=== PATIENT | female | born 1960 | race Caucasian/White ===

== ENCOUNTER 2020-07-19 14:11 | Inpatient (IN) | payer OTHER ==
[~2020-07-19 14:11] MED LIST: APREMILAST PO; CLIN150C10 PO; CLONAZEPAM PO; DICL2100G TP; DULOXETINE PO; EZET10TA13 PO; LACT1CAP78 PO; LORA-705 PO; MAGN296S76 PO; META800T72 PO; METR59LO TP; MOME17N NS; MULT-1203 PO; NAPR220C15 PO; SIMVASTATIN PO; TETR15DR84 OU; TRAM50TA4 PO
[2020-07-19] MEDS ORDERED: ONDANSETRON HCL 4 MG/2 ML VIAL ONE ×2 (14:27→18:10)
[2020-07-19] MEDS ORDERED: MECLIZINE HCL 25 MG TABLET ONE (14:27)
[2020-07-19 15:08] LABS: BASOPHILS % (AUTO) 0.5 % (0.0-5.0); EOSINOPHILS % (AUTO) 3.8 % (0.0-8.0); HEMATOCRIT 46.7 % (36-48); LYMPHOCYTES % (AUTO) 14.5 % (21.0-51.0); MEAN CORPUSCULAR HEMOGLOBIN 32.5 pg (27.0-33.0); MEAN CORPUSCULAR HGB CONC 33.4 g/dL (32.0-36.0); MEAN CORPUSCULAR VOLUME 97.3 fL (79-99); MONOCYTES % (AUTO) 4.4 % (3.0-13.0); NEUTROPHILS % (AUTO) 76.3 % (40.0-77.0); PLATELET COUNT (AUTO) 172 K/uL (130-400); RED CELL DISTRIBUTION WIDTH 13.1 % (11.0-15.5); WHITE BLOOD COUNT (AUTO) 9.7 K/uL (4.8-10.8)
[2020-07-19 15:19] LABS: CREATININE 0.7 mg/dL (0.5-1.5); POTASSIUM 4.8 mmol/L (3.5-5.1)
[2020-07-19 15:23] LABS: ALBUMIN 3.3 g/dL (3.5-5.0); BILIRUBIN,TOTAL 0.8 mg/dL (0.2-1.0); TOTAL PROTEIN, SERUM 7.4 g/dL (6.0-8.3)
[2020-07-19] MEDS ORDERED: LORAZEPAM 2 MG/ML 1 ML VIAL ONE (17:54)
[2020-07-19] MEDS ORDERED: IOHEXOL 350 MG/ML 100ML INFUS..BTL IV ONE (19:02)
[2020-07-20] VITALS (8 sets, daily range): BP systolic 117–143; BP diastolic 54–86
[2020-07-20] MEDS ORDERED: TRAMADOL HCL 50 MG TABLET PO PRN (01:00)
[2020-07-20] MEDS ORDERED: ACETAMINOPHEN 325 MG TAB PO PRN (01:00)
[2020-07-20] MEDS ORDERED: LACTULOSE 20 GM/30 ML UDCUP PO PRN (01:00)
[2020-07-20] MEDS ORDERED: MECLIZINE HCL 25 MG TABLET PO PRN (01:00)
[2020-07-20] MEDS ORDERED: ONDANSETRON HCL 4 MG/2 ML VIAL IV PRN ×2 (01:00→19:00)
[2020-07-20] MEDS ORDERED: PSEUDOEPHEDRINE HCL 30 MG TAB PO PRN (01:00)
[2020-07-20] MEDS ORDERED: MECLIZINE HCL 25 MG TABLET ONE ×2 (01:02→09:40)
[2020-07-20] MEDS ORDERED: ONDANSETRON HCL 4 MG/2 ML VIAL ONE ×2 (01:02→15:47)
[2020-07-20 01:11] LABS: AMPHET/METH SCREEN,URINE NEGATIVE (NEGATIVE); BARBITURATE SCREEN, URINE NEGATIVE (NEGATIVE); BENZODIAZEPINES SCREEN,URINE NEGATIVE (NEGATIVE); CANNABINOID SCREEN,URINE NEGATIVE (NEGATIVE); COCAINE SCREEN,URINE NEGATIVE (NEGATIVE); OPIATE SCREEN,URINE NEGATIVE (NEGATIVE); PHENCYCLIDINE SCREEN,URINE NEGATIVE (NEGATIVE)
[2020-07-20 08:11] LABS: HEMATOCRIT 45.5 % (36-48); MEAN CORPUSCULAR HEMOGLOBIN 32.4 pg (27.0-33.0); MEAN CORPUSCULAR HGB CONC 33.8 g/dL (32.0-36.0); MEAN CORPUSCULAR VOLUME 95.8 fL (79-99); RED BLOOD CELL COUNT(AUTO) 4.75 MIL/uL (4.00-5.50); RED CELL DISTRIBUTION WIDTH 13.1 % (11.0-15.5); WHITE BLOOD COUNT (AUTO) 14.9 K/uL (4.8-10.8)
[2020-07-20 08:23] LABS: CREATININE 0.6 mg/dL (0.5-1.5); POTASSIUM 3.6 mmol/L (3.5-5.1)
[2020-07-20] MEDS: ARTIFICAL TEARS SOL 15 ML OU SCH (09:00)
[2020-07-20] MEDS ORDERED: SKELAXIN 800 MG PO PRN (09:00)
[2020-07-20] MEDS ORDERED: NAPROXEN 250 MG TAB PO PRN (09:00)
[2020-07-20] MEDS: METRONIDAZOLE TP SCH (09:00)
[2020-07-20] MEDS: FLUTICASONE PROPIONATE 50MCG/SPRAY 16 GM BOTTLE EN SCH ×2 (09:00→20:23)
[2020-07-20] MEDS ORDERED: ACETAMINOPHEN 325 MG TAB ONE (09:40)
[2020-07-20] MEDS ORDERED: FLU VACC QS2020-21(6MOS UP)/PF 60 MCG/0.5 ML ML IM ONE (11:00)
[2020-07-20] MEDS ORDERED: HYDROMORPHONE HCL 2 MG/ML VIAL IVP PRN (15:45)
[2020-07-20] MEDS: ACETAMINOPHEN 325 MG TAB PO PRN (15:49)
[2020-07-20] MEDS ORDERED: LISI40TA4 PO (16:39)
[2020-07-20] MEDS ORDERED: METH25VI11 SQ (16:39)
[2020-07-20] MEDS ORDERED: AMOX1TAB16 PO (16:39)
[2020-07-20] MEDS ORDERED: ROSU10TA28 PO (16:39)
[2020-07-20] MEDS ORDERED: FOLI0.4T2 PO (16:39)
[2020-07-20] MEDS ORDERED: SULF500T49 PO (16:39)
[2020-07-20] MEDS ORDERED: METO-408 PO (16:39)
[2020-07-20] MEDS ORDERED: ISOS10TA8 PO (16:39)
--- NOTE | 2020-07-20 17:27 | NUR ---
LEONARDO NOTE/IA UNABLE TO MEET WITH PATIENT IN ROOM. NEXT OF KIN CALLED, KARRIE DURAND. PER SPOUSE, PATIENT LIVES WITH HIM, IS INDEPENDENT WITH ADLS, NO USE OF DME OR PROVIDERS, SELF EMPLOYED, AND FEEL SAFE FOR PATIENT TO RETURN HOME ONCE MEDICALLY CLEARED. Addendum: 07/20/20 at 1729 by JETHRO IVERSON RN CM Amended: Links added.
[2020-07-20] MEDS ORDERED: DULO60CA64 PO (18:36)
[2020-07-20] MEDS ORDERED: L.AC1CAP6 PO (18:36)
[2020-07-20] MEDS ORDERED: [UNRECOGNIZED DRUG - OTHER] (18:36)
[2020-07-20] MEDS ORDERED: [UNRECOGNIZED DRUG - OTHER] (18:45)
[2020-07-20] MEDS ORDERED: INFL100I INJ (18:47)
[2020-07-20] MEDS: HYDROMORPHONE HCL 2 MG/ML VIAL IVP PRN (19:39)
[2020-07-20] MEDS ORDERED: EZETIMIBE 10 MG TAB PO SCH (21:00)
[2020-07-20] MEDS ORDERED: ATORVASTATIN CALCIUM 20 MG TABLET PO SCH (21:00)
[2020-07-21] VITALS (18 sets, daily range): BP systolic 105–157; BP diastolic 45–90
[2020-07-21] MEDS: HYDROMORPHONE HCL 2 MG/ML VIAL IVP PRN ×2 (01:58→07:21)
[2020-07-21 03:52] LABS: BASOPHILS % (AUTO) 0.3 % (0.0-5.0); EOSINOPHILS % (AUTO) 0.1 % (0.0-8.0); HEMATOCRIT 47.9 % (36-48); LYMPHOCYTES % (AUTO) 8.8 % (21.0-51.0); MEAN CORPUSCULAR HEMOGLOBIN 32.5 pg (27.0-33.0); MEAN CORPUSCULAR VOLUME 98.6 fL (79-99); MONOCYTES % (AUTO) 5.1 % (3.0-13.0); NEUTROPHILS % (AUTO) 85.1 % (40.0-77.0); PLATELET COUNT (AUTO) 219 K/uL (130-400); RED BLOOD CELL COUNT(AUTO) 4.86 MIL/uL (4.00-5.50); RED CELL DISTRIBUTION WIDTH 13.4 % (11.0-15.5); WHITE BLOOD COUNT (AUTO) 14.2 K/uL (4.8-10.8)
[2020-07-21 03:57] LABS: HEMOGLOBIN A1C 5.9 % (4.0-6.0)
[2020-07-21 04:10] LABS: CREATININE 0.8 mg/dL (0.5-1.5); POTASSIUM 3.8 mmol/L (3.5-5.1)
[2020-07-21] MEDS: ACETAMINOPHEN 325 MG TAB PO PRN (04:27)
[2020-07-21] MEDS: METRONIDAZOLE TP SCH ×2 (09:00→09:41)
[2020-07-21] MEDS: ARTIFICAL TEARS SOL 15 ML OU SCH (09:39)
[2020-07-21] MEDS: FLUTICASONE PROPIONATE 50MCG/SPRAY 16 GM BOTTLE EN SCH (09:40)
--- NOTE | 2020-07-21 11:30 | NUR ---
CHRISTOPHER, DR MATIAS'S ER RN, NOTIFIED OF CT READING FROM THIS AM. STATES DR MATIAS WILL BE NOTIFIED AND WILL PROBABLY SEE THE PATIENT TOMORROW
--- NOTE | 2020-07-21 17:30 | NUR ---
TRANSFER REPORT GIVEN TO MARIA M, NURSE AT [facility], AT THIS TIME. PATIENT TO BE TRANSFERRED FOR HIGHER LEVEL OF CARE. DR DEWEY, DR LEAL, AND DR JOSE LUIS KEY. PATIENT'S , KARRIE, WAS UPDATED AND NOTIFIED ABOUT TRANSFER BY DR LEAL VIA TELEPHONE. PATIENT IS ALSO AAO AND AGREES WITH PLAN. PATIENT TO LEAVE VIA EMS SOON POSSIBLE
--- NOTE | 2020-07-21 18:30 | NUR ---
PATIENT TRANSFERRED VIA EMS AT THIS TIME TO [facility]
--- NOTE | 2020-07-21 19:32 | NUR ---
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 [address] [facility] and email sent to [facility] 1600 call back with a denial no beds. 1625 Dr moran made aware no beds. 1633 intake nurse call back with acceptance room icu 13 and primary nurse to call report to [facility] 1036 consent sign and EMS set up . Pasquale carrizales
== END 2020-07-21 18:30 | disposition short-term general hospital (02) | DRG 66 ==
LOC: EDH 14:11 → EDHIP 07-20 00:49 → OBSVTOIN 07-20 00:49 → DAHIP 07-20 16:10
PROVIDERS: ADMIT Internal Medicine; ATTEND Internal Medicine
DX: I63.9 Cerebral infarction, unspecified (principal); J32.9 Chronic sinusitis, unspecified; M06.9 Rheumatoid arthritis, unspecified; G43.909 Migraine, unspecified, not intractable, without status migrainosus; E78.5 Hyperlipidemia, unspecified; I10 Essential (primary) hypertension; F41.9 Anxiety disorder, unspecified; F32.9 Major depressive disorder, single episode, unspecified; H55.00 Unspecified nystagmus; G89.4 Chronic pain syndrome; D72.828 Other elevated white blood cell count; J32.0 Chronic maxillary sinusitis; Z20.828 Contact with and (suspected) exposure to other viral communicable diseases; E66.01 Morbid (severe) obesity due to excess calories; Z79.899 Other long term (current) drug therapy; Z23 Encounter for immunization; Z82.3 Family history of stroke
CPT/HCPCS: 36415; 70450; 70496; 70498; 70551; 80048; 80053; 80061; 80305; 82550; 83036; 84484; 85025; 85027; 87426; 93005; G0378; J1170; J2060; J2405; Q2035; Q9967

== ENCOUNTER → 2025-10-02 | Outpatient (CLI) | payer OTHER ==
[~2025-10-02] MED LIST changes: +AMOX1TAB16 PO; +CLIN-116 PO; -CLIN150C10 PO; +DULO60CA64 PO; -EZET10TA13 PO; +EZET10TA81 PO; +FOLI0.4T6 PO; +INFL100I INJ; +ISOS10TA96 PO; +L.AC1CAP6 PO; +LISI40TA15 PO; +LORA-699 PO; -LORA-705 PO; +MAGN296S73 PO; -MAGN296S76 PO; +METH25VI11 SQ; +METO-408 PO; -MOME17N NS; +MOME17SP4 NS; +ROSU10TA98 PO; +SULF500T49 PO; +[UNRECOGNIZED DRUG - OTHER]; +[UNRECOGNIZED DRUG - OTHER]
--- NOTE | 2025-10-06 13:43 | HMCIMG ---
US DUPLEX BILATERAL LOWER EXTREMITY ARTERIES Clinical History: I73.9 (DICOM Hx) / Insurance= (Pt comments) (DICOM Hx) Technique: Real-time ultrasound scan of the arteries of the bilateral lower extremity with 2-D rojas scale, color Doppler flow, and spectral waveform analysis. Comparison: None provided. Findings: Common Femoral Artery: No occlusion or significant stenosis. Normal flow velocities recorded; 127 cm/s on the right and 126 cm/s on the left. Superficial Femoral Artery: No occlusion or significant stenosis. Normal flow velocities noted at proximal, mid, and distal segments bilaterally. Right side velocities measure 103 cm/s, 94 cm/s, and 106 cm/s respectively. Left side velocities measure 113 cm/s, 91 cm/s, and 90 cm/s respectively. Popliteal Artery: No occlusion or significant stenosis. Normal flow velocities with right popliteal peak at 88 cm/s and distal at 81 cm/s. Left popliteal peak and distal velocities are 73 cm/s each. Calf Arteries: No occlusion or significant stenosis. Flow velocities within normal limits for posterior tibial artery, anterior tibial artery distal segment, and dorsalis pedis artery bilaterally. Right calf artery velocities include 90 cm/s (MACHINE OPERATOR REPLANTER), 60 cm/s (BETHANY distal), and 69 cm/s (DPA). Left calf artery velocities include 70 cm/s (MACHINE OPERATOR REPLANTER), 76 cm/s (BETHANY distal), and 75 cm/s (DPA). Waveforms: Triphasic waveforms are maintained across all major arterial segments bilaterally, consistent with normal peripheral arterial flow. Additional Findings: Handwritten notation indicates mild atherosclerosis without hemodynamic significance. Impression: * Mild atherosclerosis. * No Doppler evidence of significant arterial stenosis in either lower limb. /Meng
== END | disposition home or self-care (01) ==
LOC: RAH 09:08
PROVIDERS: ATTEND Family Medicine
DX: I73.9 Peripheral vascular disease, unspecified (principal); I70.90 Unspecified atherosclerosis
CPT/HCPCS: 93925